=== PATIENT | male | born 1935 | race Caucasian/White ===

== ENCOUNTER 2017-01-27 14:10 | Emergency (ER) | payer MEDICARE ==
[2017-01-27 14:23] VITALS: TEMP 97.8
[2017-01-27 15:30] LABS: BASOPHILS % (AUTO) 1 % (0-3); EOSINOPHILS % (AUTO) 2 % (0-9); HEMATOCRIT 32 % (39-53); MEAN CORPUSCULAR HGB CONC 35.5 gm/dl (32.0-36.0); MEAN CORPUSCULAR VOLUME 89 fL (80-100); MONOCYTES % (AUTO) 9.1 % (0-12); NEUTROPHILS % (AUTO) 63.5 % (37-80)
[2017-01-27] MEDS ORDERED: PILOCARPINE 2% OP SCH (15:30)
[2017-01-27 15:48] LABS: POTASSIUM 4.2 mMol/L (3.5-5.1)
[2017-01-27 17:01] VITALS: BP 127/89; PULSE 89; RESP 18; O2SAT 94
== END 2017-01-27 16:45 | disposition home or self-care (01) | DRG 313 ==
LOC: ED 14:10
DX: R07.89 Other chest pain (principal); R68.89 Other general symptoms and signs
CPT/HCPCS: 36415; 80048; 84484; 85025; 93005; 99282; 99283

== ENCOUNTER 2017-07-31 08:14 | Emergency (ER) | payer MEDICARE ==
[2017-07-31] MEDS ORDERED: ONDANSETRON HCL 4 MG/2 ML SOL IV ONE (08:18)
[2017-07-31] MEDS ORDERED: MORPHINE SULFATE 10 MG/ML SOL IV ONE (08:19)
[2017-07-31 08:20] VITALS: RESP 18; O2SAT 99
[2017-07-31 08:43] LABS: LACTIC ACID 1.8 mMol/L (0.0-2.0)
[2017-07-31 08:58] LABS: ALBUMIN 3.3 gm/dl (3.4-5.0); BILIRUBIN,TOTAL 0.4 mg/dl (0.2-1.0); CALCIUM 8.4 mg/dl (8.5-10.1); CARBON DIOXIDE 26.9 mEq/L (21-32); CREATININE 1.17 mg/dl (0.80-1.30); POTASSIUM 4.3 mMol/L (3.5-5.1); TOTAL PROTEIN 6.6 gm/dl (6.4-8.2)
[2017-07-31 09:16] LABS: BASOPHILS % (AUTO) 1 % (0-3); EOSINOPHILS % (AUTO) 4 % (0-9); HEMATOCRIT 32 % (39-53); HEMOGLOBIN 10.8 gm/dl (13.5-17.7); LYMPHOCYTES % (AUTO) 28.3 % (10-50); MEAN CORPUSCULAR HEMOGLOBIN 31.2 pg (27.0-32.0); MEAN CORPUSCULAR HGB CONC 34.2 gm/dl (32.0-36.0); MEAN CORPUSCULAR VOLUME 91 fL (80-100); MONOCYTES % (AUTO) 7.9 % (0-12); NEUTROPHILS % (AUTO) 59.3 % (37-80)
[2017-07-31 11:28] LABS: APPEARANCE,URINE Clear; BILIRUBIN,URINE NEGATIVE (NEGATIVE); COLOR,URINE Dark yellow; GLUCOSE, URINE (UA) NEGATIVE (NEGATIVE); KETONES,URINE NEGATIVE (NEGATIVE); LEUKOCYTE ESTERASE ,URINE NEGATIVE (NEGATIVE); NITRATE,URINE NEGATIVE (NEGATIVE); OCCULT BLOOD,URINE NEGATIVE (NEG-TRACE); UROBILINOGEN,URINE 0.2 (0.2-1.0 EU)
[2017-07-31 11:37] LABS: BACTERIA NEGATIVE (< 1+); CRYSTALS NEGATIVE (0-3 AVE/HPF); EPITHELIAL CELLS 0-3 (SQUAMOUS); RBC,URINE 0-1 (0-3AV/HPF); WBC,URINE 0-1 (0-5AV/HPF)
[2017-07-31 11:47] VITALS: BP 128/72; PULSE 77; TEMP 96.9
[2017-07-31] MEDS ORDERED: METRONIDAZOLE 250 MG TAB PO ONE (11:47)
[2017-07-31] MEDS ORDERED: METRONIDAZOLE 250 MG TAB ONE (11:54)
[2017-07-31] MEDS ORDERED: CIPROFLOXACIN HCL 500 MG TAB PO ONE ×2 (11:56→12:00)
== END 2017-07-31 12:07 | disposition home or self-care (01) | DRG 392 ==
LOC: ED 08:14
DX: K57.92 Diverticulitis of intestine, part unspecified, without perforation or abscess without bleeding (principal); K59.00 Constipation, unspecified; R10.32 Left lower quadrant pain
CPT/HCPCS: 36415; 74177; 80053; 81001; 85025; 87040; 87077; 87186; 87205; 99283; Q9967; A9270-GY

== ENCOUNTER 2017-12-27 07:20 | Day surgery (SDC) | payer MEDICARE ==
[2017-12-27] MEDS ORDERED: PROPOFOL 500 MG/50 ML EMU IV ONE (07:54)
[2017-12-27 09:40] VITALS: BP 134/78; PULSE 75; RESP 18; TEMP 96.5; O2SAT 97
== END 2017-12-27 10:30 | disposition home or self-care (01) | DRG 951 ==
LOC: SURG 07:20
PROVIDERS: ATTEND Surgery
DX: Z12.11 Encounter for screening for malignant neoplasm of colon (principal); K57.32 Diverticulitis of large intestine without perforation or abscess without bleeding; E11.9 Type 2 diabetes mellitus without complications; Z86.010 Personal history of colon polyps; K59.00 Constipation, unspecified; D12.5 Benign neoplasm of sigmoid colon; K62.1 Rectal polyp
CPT/HCPCS: J2704

== ENCOUNTER 2018-03-17 08:55 | Emergency (ER) | payer MEDICARE ==
[2018-03-17 09:11] VITALS: RESP 18
[2018-03-17] MEDS ORDERED: SODIUM CHLORIDE 0.9% 1000ML 1,000 ML IV ONE (09:28)
[2018-03-17 09:45] LABS: BASOPHILS % (AUTO) 0 % (0-3); EOSINOPHILS % (AUTO) 3 % (0-9); HEMATOCRIT 36 % (39-53); HEMOGLOBIN 12.1 gm/dl (13.5-17.7); LYMPHOCYTES % (AUTO) 26.6 % (10-50); MEAN CORPUSCULAR HEMOGLOBIN 31.4 pg (27.0-32.0); MEAN CORPUSCULAR HGB CONC 33.1 gm/dl (32.0-36.0); MEAN CORPUSCULAR VOLUME 95 fL (80-100); MONOCYTES % (AUTO) 8.4 % (0-12); NEUTROPHILS % (AUTO) 61.7 % (37-80)
[2018-03-17] MEDS ORDERED: SODIUM CHLORIDE 0.9% FLUSH 10 ML SOL IV PRN (09:52)
[2018-03-17 09:58] LABS: ALBUMIN 3.7 gm/dl (3.4-5.0); BILIRUBIN,TOTAL 0.5 mg/dl (0.2-1.0); CALCIUM 9.2 mg/dl (8.5-10.1); CARBON DIOXIDE 23.6 mEq/L (21-32); CREATININE 1.38 mg/dl (0.80-1.30); POTASSIUM 4.5 mMol/L (3.5-5.1)
[2018-03-17 10:45] VITALS: O2SAT 99
[2018-03-17 11:36] VITALS: TEMP 96.1
[2018-03-17 12:40] VITALS: BP 109/74; PULSE 90
== END 2018-03-17 12:32 | disposition home or self-care (01) | DRG 392 ==
LOC: ED 08:55
DX: K57.92 Diverticulitis of intestine, part unspecified, without perforation or abscess without bleeding (principal); E11.9 Type 2 diabetes mellitus without complications; N40.0 Benign prostatic hyperplasia without lower urinary tract symptoms; R91.1 Solitary pulmonary nodule
CPT/HCPCS: 36415; 74177; 80053; 85025; 96365; 96366; 99284; Q9967

== ENCOUNTER 2018-06-26 07:11 | Emergency (ER) | payer MEDICARE ==
[2018-06-26] MEDS ORDERED: SODIUM CHLORIDE 0.9% 1000ML 1,000 ML IV ONE (07:43)
[2018-06-26 07:58] LABS: BASOPHILS % (AUTO) 0 % (0-3); EOSINOPHILS % (AUTO) 2 % (0-9); HEMATOCRIT 34 % (39-53); HEMOGLOBIN 11.4 gm/dl (13.5-17.7); LYMPHOCYTES % (AUTO) 23.3 % (10-50); MEAN CORPUSCULAR HEMOGLOBIN 31.4 pg (27.0-32.0); MEAN CORPUSCULAR HGB CONC 33.2 gm/dl (32.0-36.0); MEAN CORPUSCULAR VOLUME 94 fL (80-100); MONOCYTES % (AUTO) 11.2 % (0-12); NEUTROPHILS % (AUTO) 63.5 % (37-80)
[2018-06-26 08:10] LABS: ALBUMIN 3.2 gm/dl (3.4-5.0); BILIRUBIN,TOTAL 0.7 mg/dl (0.2-1.0); CALCIUM 8.7 mg/dl (8.5-10.1); CARBON DIOXIDE 25.6 mEq/L (21-32); CREATININE 1.26 mg/dl (0.80-1.30); POTASSIUM 4.3 mMol/L (3.5-5.1); TOTAL PROTEIN 6.6 gm/dl (6.4-8.2)
[2018-06-26 08:13] VITALS: TEMP 97.6
[2018-06-26 08:28] LABS: APPEARANCE,URINE Clear; BILIRUBIN,URINE NEGATIVE (NEGATIVE); COLOR,URINE Yellow; GLUCOSE, URINE (UA) NEGATIVE (NEGATIVE); KETONES,URINE NEGATIVE (NEGATIVE); LEUKOCYTE ESTERASE ,URINE NEGATIVE (NEGATIVE); NITRATE,URINE NEGATIVE (NEGATIVE); OCCULT BLOOD,URINE NEGATIVE (NEG-TRACE); PH,URINE 5.5; UROBILINOGEN,URINE 0.2 (0.2-1.0 EU)
[2018-06-26 08:30] LABS: RBC,URINE 0-2 (0-3AV/HPF); WBC,URINE 0-2 (0-5AV/HPF)
[2018-06-26 08:31] LABS: BACTERIA RARE (< 1+); CRYSTALS NEGATIVE (0-3 AVE/HPF)
[2018-06-26] MEDS ORDERED: CIPROFLOXACIN HCL 500 MG TAB PO STA (09:10)
[2018-06-26] MEDS ORDERED: METRONIDAZOLE 250 MG TAB PO ONE (09:11)
[2018-06-26] MEDS ORDERED: METRONIDAZOLE 250 MG TAB ONE (09:37)
[2018-06-26] MEDS ORDERED: CIPROFLOXACIN HCL 500 MG TAB PO ONE (09:37)
[2018-06-26 10:27] VITALS: BP 110/64; PULSE 81; RESP 20; O2SAT 99
== END 2018-06-26 10:04 | disposition home or self-care (01) | DRG 392 ==
LOC: ED 07:11
DX: K57.92 Diverticulitis of intestine, part unspecified, without perforation or abscess without bleeding (principal); E11.9 Type 2 diabetes mellitus without complications
CPT/HCPCS: 74177; 80053; 81001; 85025; 96365; 96366; 99283; 99285; Q9967; A9270-GY